=== PATIENT | female | born 1995 | race Native Hawaiian/Other Pacific Islander ===

== ENCOUNTER 2020-04-27 16:27 | Outpatient (CLI) | payer BC ==
[2020-04-27 17:18] LABS: PLATELET COUNT 253 K/uL (152-353)
[2020-04-27 17:37] LABS: POTASSIUM 3.9 mmol/L (3.6-5.2); SODIUM 140 mmol/L (136-145)
== END 2020-04-27 23:05 | disposition home or self-care (01) ==
LOC: LABW 16:27
PROVIDERS: Dermatology
DX: L70.0 Acne vulgaris (principal)
CPT/HCPCS: 36415; 80053; 80061; 84702; 85027